=== PATIENT | male | born 1955 | race Caucasian/White ===

== ENCOUNTER → 2017-04-29 | Outpatient (CLI) | payer OTHER ==
--- NOTE | 2017-04-29 15:06 | RAD ---
EXAM: Right hand, 3 views. HISTORY: Pain. COMPARISON: None. FINDINGS: Frontal, lateral and oblique views of the right hand are obtained. There is a displaced fracture of the mid to distal aspect of the fifth metacarpal. 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 IMPRESSION: Displaced fifth metacarpal fracture.
== END | disposition home or self-care (01) ==
LOC: DXRADRC 14:48
PROVIDERS: ATTEND Physician Assistant Medical
DX: S62.306A Unspecified fracture of fifth metacarpal bone, right hand, initial encounter for closed fracture (principal); M19.041 Primary osteoarthritis, right hand; W19.XXXA Unspecified fall, initial encounter; Y93.89 Activity, other specified; Y92.89 Other specified places as the place of occurrence of the external cause; Y99.8 Other external cause status
CPT/HCPCS: 73130

== ENCOUNTER 2018-02-09 07:36 | Emergency (ER) | payer OTHER ==
[~2018-02-09] VITALS: Ht 160 cm; Wt 74.8 kg
--- NOTE | 2018-02-09 08:18 | PHYS DOC ---
Adult General Chief Complaint Chief Complaint: CHEMICAL EXPOSURE HPI HPI 62-year-old male presenting the emergency department after having exposure chemical to his left eye. This happened about 30 minutes prior to arrival. It happened while he was working. 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 The primary that was used was called primer E584, also 3M primary 94. Antidote brand name "expect". Isotonic buffered flushing solution. The patient flushed his eyes with water and the buffered solution prior to arrival. Currently he has minimal amount of pain which is improving significantly since the event. The patient's industrial safety and health technician is named Zelalem. He is here with the patient today. The patient denies any visual changes. Past medical history: Dyslipidemia and hypertension Past surgical history: Status post CABG and right toe surgery. Allergies: None Social history: Denies smoking, drinks occasionally, denies IV drug use. Review of systems is negative for chest pain shortness of breath abdominal pain nausea vomiting fevers chills. Negative for blurred vision or diplopia. He denies headache. All other review of systems is negative unless otherwise noted in history of present illness. ED course: 62-year-old male presenting to the emergency department today after having exposure to his left eye. On arrival the patient is well-appearing with normal vital signs. His visual acuity in his left eye is 20/25 which is baseline for the patient. On examination conjunctiva is normal. Pupils are equal and reactive. Fluorescein stain unremarkable. Normal extraocular movements. Negative Henry's test. Unremarkable examination. PH of the patient' s left eye is 7.0 and similar to contralateral eye. Poison control was called which agreed with care thus far. We will refer the patient to an eye doctor in the next day or 2 for specialist referral.The patient has been examined and was not found to have an emergency medical condition. The patient was then discharged home in stable condition. They were to return if their symptoms worsened or if they were concerned for any reason. They were also instructed to return to the emergency department if they were unable to get the recommended and appropriate follow-up. [id number] discharge instructions and return precautions were given. Patient's questions were answered to their satisfaction. Patient is comfortable with plan. Review of Systems Review of Systems SEE ABOVE. Physical Exam Physical Exam SEE ABOVE Constitutional: Well developed, well nourished, no acute distress, non-toxic appearance. [] HENT: Normocephalic, atraumatic, bilateral external ears normal, oropharynx moist, no oral exudates, nose normal. [] Eyes: Eye Exam w/ slit lamp: Visual Acuity: as above Visual Avila: Intact in all four quadrants bilaterally Lac ducts/glands: No swelling Lids w/ evertion: Normal, no foreign body, no primer visible Conj/Brainard: Clear, negative Fluorescein/Henry's Anterior Chamber: Clear Neck: Normal range of motion, no tenderness, supple, no stridor. [] Cardiovascular:Heart rate regular rhythm, no murmur [] Lungs & Thorax: Bilateral breath sounds clear to auscultation [] Abdomen: Bowel sounds normal, soft, no tenderness, no masses, no pulsatile masses. Skin: Warm, dry, no erythema, no rash. [] Back: No tenderness, no CVA tenderness. [] Extremities: No tenderness, no cyanosis, no clubbing, ROM intact, no edema. [] Neurologic: Alert and oriented X 3, normal motor function, normal sensory function, no focal deficits noted. [] Psychologic: Affect normal, judgement normal, mood normal. EKG EKG [] Radiology/Procedures Radiology/Procedures [] Course & Med Decision Making Course & Med Decision Making Pertinent Labs and Imaging studies reviewed. (See chart for details) [] Dragon Disclaimer Dragon Disclaimer This electronic medical record was generated, in whole or in part, using a voice recognition dictation system. Departure Departure: Impression: Primary Impression: Chemical exposure of eye Disposition: 01 HOME, SELF-CARE Condition: STABLE Referrals: SARAH BARILLAS (PCP) Additional Instructions: Thank you for allowing us to participate in your care today. Return to the emergency department you have any new or worsening symptoms, or if you are concerned for any reason. Return to emergency department if you have any new or concerning symptoms including but not limited to fever, chills, nausea, vomiting, intractable pain, any new rashes, chest pain, shortness of air , uncontrolled bleeding, difficulty breathing, and/or vision loss. Follow up with your primary care physician within 3 days. Call your Primary Doctor tomorrow and inform them of your visit today. If you do not have a primary care provider we are happy to provide you with a list of our primary care providers contact information. This condition should be evaluated by your primary care physician and any recommended consulting services for continued management within 2-3 days after discharge. If at any time, you are having difficulty getting into your primary care doctor or a specialist, return to the emergency department. KADEN ANDERS MD Feb 09, 2018 08:18
[2018-02-09 09:54] VITALS: BP 184/118
== END 2018-02-09 09:56 | disposition home or self-care (01) ==
LOC: ER 07:36
DX: Z77.098 Contact with and (suspected) exposure to other hazardous, chiefly nonmedicinal, chemicals (principal); I10 Essential (primary) hypertension; E03.9 Hypothyroidism, unspecified; Z95.1 Presence of aortocoronary bypass graft
CPT/HCPCS: 99283

== ENCOUNTER → 2021-01-25 | Outpatient (CLI) | payer OTHER ==
[2021-01-25 16:16] LABS: CALCIUM 8.6 mg/dL (8.5-10.1); CREATININE 1.8 mg/dL (0.7-1.3); GFR 37.9; POTASSIUM 3.8 mmol/L (3.5-5.1)
== END ==
LOC: LAB 15:15
DX: R07.9 Chest pain, unspecified (principal); Z95.1 Presence of aortocoronary bypass graft; Z95.5 Presence of coronary angioplasty implant and graft
CPT/HCPCS: 36415; 80048

== ENCOUNTER → 2021-01-31 | Outpatient (CLI) | payer OTHER ==
[2021-01-31 14:54] LABS: CALCIUM 8.4 mg/dL (8.5-10.1); CREATININE 1.4 mg/dL (0.7-1.3); GFR 50.7; POTASSIUM 3.8 mmol/L (3.5-5.1)
== END ==
LOC: LAB 13:39
PROVIDERS: ATTEND Nurse Practitioner Adult Health
DX: I25.10 Atherosclerotic heart disease of native coronary artery without angina pectoris (principal)
CPT/HCPCS: 36415; 80048